=== PATIENT | male | born 1975 | race African-American/Black ===

== ENCOUNTER 2023-08-15 23:51 | Observation (INO) | payer OTHER ==
[2023-08-16 00:41] VITALS: BMI 20.5
[2023-08-16 01:28] LABS: Troponin I Less than 0.010 ng/mL (< 0.028)
[2023-08-16] MEDS ORDERED: Nitroglycerin 0.4 MG TAB (25 Tab Bottle) SL PRN (04:30)
[2023-08-16 05:11] LABS: #Eosinphils 0.3 10x3/uL (0.0-0.5); #Monocytes 0.5 10x3/uL (0.0-1.1); #Neutrophils 1.9 10x3/uL (1.5-8.4); %Basophils 0.7 % (0.0-2.0); %Lymphocytes 38.8 % (18.0-47.0); %Monocytes 10.9 % (0.0-10.0); %Neutrophils 43.2 % (40.0-75.0); Hematocrit 34.9 % (38.8-50.0); Hemoglobin 12.6 g/dL (13.5-17.5); Mean Corpuscular HGB CONC 36.1 g/dL (32.0-36.0); Mean Corpuscular Hemoglobin 27.5 pg (27.0-33.0); Mean Corpuscular Volume 76.2 fl (81.2-95.1); Mean Platelet Volume 11.6 fl (7.4-10.4); Platelet Count 144 10x3/uL (150-450); RBC Distribution Width 13.2 % (11.5-14.5); Red Blood Cell (RBC) Count 4.58 10x6/uL (4.32-5.72); White Blood Cell (WBC) Count 4.5 10x3/uL (3.5-10.5)
[2023-08-16 05:14] LABS: Anion Gap 12 mmol/L (10-20); BUN (Urea Nitrogen) 16 mg/dL (8.9-20.6); Calc. Creatinine Clearance 85 mL/min (70-130); Calcium 9.1 mg/dL (7.8-10.44); Carbon Dioxide 27 mmol/L (22-29); Cardiac Risk 6.7 (Less than 4.5); Chloride 103 mmol/L (98-107); Cholesterol 200 mg/dl (< 200 Desired); Estimated GFR 83; Glucose 147 mg/dL (70-105); HDL Cholesterol 30 mg/dL (>60 Neg Risk); LDL Cholesterol, Calculated 128 mg/dL; Magnesium 1.9 mg/dL (1.6-2.6); Potassium 3.9 mmol/L (3.5-5.1); Sodium 138 mmol/L (136-145); Triglycerides 211 mg/dL (Less than 150)
[2023-08-16] MEDS: Potassium Chloride 20 MEQ TAB PO SCH ×2 (05:53→10:03)
[2023-08-16] MEDS: Nitroglycerin 2% Ointment 1 INCH/1 GM Packet TOP SCH ×2 (05:54→14:29)
[2023-08-16] MEDS ORDERED: Acetaminophen 325 MG TAB PO PRN (08:58)
[2023-08-16] MEDS ORDERED: Ranolazine 500 MG ER.TAB PO SCH (09:00)
[2023-08-16] MEDS ORDERED: Hydrochlorothiazide 25 MG TAB PO SCH (09:00)
[2023-08-16] MEDS ORDERED: Losartan 50 MG TAB PO SCH (09:00)
[2023-08-16] MEDS ORDERED: Aspirin Chewable 81 MG TAB PO SCH (09:00)
[2023-08-16] MEDS ORDERED: Enoxaparin 40 MG (0.4 mL) SYRINGE SC SCH (09:00)
[2023-08-16] MEDS ORDERED: Magnesium 2 GM/50 ML(in water) 2 GM in Premix 1 BAG IVPB SCH (11:00)
[2023-08-16 13:19] VITALS: TEMP 97.8
[2023-08-16 13:47] LABS: Hemoglobin A1c 6.7 % (4.0-6.0)
[2023-08-16 17:00] VITALS: BP 144/68
[2023-08-16] MEDS ORDERED: Atorvastatin Calcium 40 MG TAB PO SCH (21:00)
== END 2023-08-16 18:24 | disposition home or self-care (01) ==
LOC: CSHTELE 23:51 → INTOOBSV 23:51
PROVIDERS: ADMIT Family Medicine; ATTEND Emergency Medicine
PROC: B24BZZZ Ultrasonography of Heart with Aorta (ICD-10-PCS; principal; 2023-08-16)
DX: R07.9 Chest pain, unspecified (principal); I25.10 Atherosclerotic heart disease of native coronary artery without angina pectoris; I11.9 Hypertensive heart disease without heart failure; I25.2 Old myocardial infarction; E87.6 Hypokalemia; E83.42 Hypomagnesemia; E78.5 Hyperlipidemia, unspecified; F17.210 Nicotine dependence, cigarettes, uncomplicated; E66.01 Morbid (severe) obesity due to excess calories; R73.9 Hyperglycemia, unspecified; Z68.41 Body mass index [BMI] 40.0-44.9, adult; Z88.8 Allergy status to other drugs, medicaments and biological substances; Z98.890 Other specified postprocedural states; Z79.82 Long term (current) use of aspirin; Z79.899 Other long term (current) drug therapy
CPT/HCPCS: 36415; 80048; 80061; 83036; 83735; 84484; 85025; 93005; 93010; 93306; 96372; 96374; G0378; J1650; J3475